=== PATIENT | female | born 1975 | race Caucasian/White ===

== ENCOUNTER 2020-03-03 05:47 | Emergency (ER) | payer BC ==
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
[2020-03-03 06:03] VITALS: BP 114/63
[2020-03-03] MEDS: HYDROcod/ACETAM 5/325 MG TABLET PO STA (06:12)
[2020-03-03] MEDS: BACITRACIN ZINC OINT 1 PACKET TOP STA (06:45)
== END 2020-03-03 07:00 | disposition home or self-care (01) ==
LOC: ED 05:47
DX: T23.261A Burn of second degree of back of right hand, initial encounter (principal); X12.XXXA Contact with other hot fluids, initial encounter
CPT/HCPCS: 16020; 99283; A9270

== ENCOUNTER 2020-06-25 06:56 | Outpatient (CLI) | payer BC ==
[2020-06-25 15:25] LABS: EOSINOPHILS # (AUTO) 0.1 10^3/uL (0.0-0.7); EOSINOPHILS % (AUTO) 4.6 %; HGB - HEMOGLOBIN 13.8 g/dL (12.0-16.0); LYMPHOCYTES # (AUTO) 1.1 10^3/uL (1.5-3.5); LYMPHOCYTES % (AUTO) 35.4 %; MEAN CORPUSCULAR HGB CONC 33.5 g/dL (32.0-36.0); MEAN CORPUSCULAR VOLUME 95.6 fL (81.0-99.0); MEAN PLATELET VOLUME 10.7 fL (7.9-10.8); MONOCYTES # (AUTO) 0.3 10^3/uL (0.0-1.0); MONOCYTES % (AUTO) 9.9 %; NEUTROPHILS # (AUTO) 1.5 10^3/uL (1.5-6.6); NEUTROPHILS % (AUTO) 49.1 %; PLT - PLATELET COUNT 193 10^3/uL (130-450); RED BLOOD COUNT 4.31 10^6/uL (4.20-5.40); RED CELL DISTRIBUTION WIDTH 12.2 % (12.0-15.0)
[2020-06-25 15:52] LABS: % IRON SATURATION 29 % (20-50); ALBUMIN 4.6 g/dL (3.2-5.5); ALBUMIN/GLOBULIN RATIO 2.2 (1.0-2.2); ALKALINE PHOSPHATASE 42 IU/L (42-121); ALT ALANINE AMINOTRANSFERASE 18 IU/L (10-60); AST ASPARTATE AMINOTRANSFERASE 18 IU/L (10-42); BILIRUBIN,TOTAL 0.9 mg/dL (0.2-1.0); BUN - BLOOD UREA NITROGEN 18 mg/dL (6-20); CALCIUM 9.2 mg/dL (8.5-10.3); CARBON DIOXIDE - CO2 25 mmol/L (21-32); CHLORIDE 106 mmol/L (101-111); CHOL/HDL RATIO 2.3 (<4.4); CHOLESTEROL 171 mg/dL; CREATININE 0.7 mg/dL (0.4-1.0); GLUCOSE 96 mg/dL (70-100); HDL CHOLESTEROL 75 mg/dL; IRON 111 ug/dL (28-170); SODIUM 137 mmol/L (135-145); TOTAL IRON BINDING CAPACITY 381 ug/dL (250-450); TOTAL PROTEIN 6.7 g/dL (6.7-8.2); TRANSFERRIN 272 mg/dL (192-382)
[2020-06-25 16:04] LABS: FERRITIN 24.4 ng/mL (11.0-306.8)
[2020-06-25 16:27] LABS: FOLLICLE STIMULATING HORMONE 4.41 mIU/mL
[2020-06-25 16:28] LABS: LUTEINIZING HORMONE 3.76 mIU/mL
[2020-06-25 20:19] LABS: HEMOGLOBIN A1c% 4.9 % (4.27-6.07)
[2020-06-26 06:05] LABS: PROGESTERONE 17.7 ng/mL
== END 2020-06-25 06:57 | disposition home or self-care (01) ==
LOC: LAB.S 06:56
PROVIDERS: ATTEND Acupuncturist
DX: F31.81 Bipolar II disorder (principal); R42 Dizziness and giddiness; R53.83 Other fatigue
CPT/HCPCS: 36415; 80053; 80061; 81599; 82672; 82728; 83001; 83002; 83036; 83525; 83540; 83721; 84144; 84403; 84466; 85025

== ENCOUNTER 2020-10-16 11:40 | Emergency (ER) | payer BC ==
[2020-10-16] MEDS ORDERED: ONDANSETRON ODT 4 MG TABLET TL STA (12:09)
--- NOTE | 2020-10-16 12:12 | ED Physician Documentation ---
History of Present Illness - Stated complaint Stated Complaint: BACK PX - Chief complaint Chief Complaint: Back Pain - History obtained from History obtained from: Patient - History of Present Illness Timing: Yesterday - Additonal information Additional information: 45-year-old female presents to the emergency department for evaluation of right low back pain. She is reportedly 18 weeks . She is attended by clinical account liaison on [facility]. 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 She reports that yesterday she was laughing hard with her family and did not think much of it but when she woke up in the morning she had some pain in the right low back. Since then she has taken 3 doses of extra strength Tylenol and has taken the edge off the pain but not fully relieved it. She also reports that she vomited this morning which made her worry. She denies lower pelvic cramping, vaginal bleeding loss of fluids. She continues to have movement. We were able to easily get heart tones with a heart rate greater than 150. Patient reports that she called her clinical account liaison (Irene Gutierrez) and was advised to come to the ER to get a prescription for something stronger than Tylenol. In the room she appears very well moves with very little difficulty. no saddle anesthesia, leg parathesias, fevers, leg weakness. A2; history of x2. She takes lamotrigine and fluoxetine for history of bipolar depression. Denies any previous history of low back pain. No falls or trauma. No fevers. Denies any change in symptoms with urination or dysuria. No hematuria. Review of Systems Constitutional: denies: Fever, Chills Eyes: reports: Reviewed and negative Ears: reports: Reviewed and negative Nose: reports: Reviewed and negative Throat: reports: Reviewed and negative Cardiac: reports: Reviewed and negative Respiratory: reports: Reviewed and negative GI: reports: Nausea, Vomiting. denies: Abdominal Pain, Constipation, Diarrhea : denies: Dysuria, Frequency, Hesitancy Skin: reports: Reviewed and negative Musculoskeletal: reports: Back pain Neurologic: reports: Reviewed and negative PD PAST MEDICAL HISTORY - Past Medical History Past Medical History: Yes Psych: Bipolar disorder, Obsessive compulsive disorder - Past Surgical History Past Surgical History: Yes General: Cholecystectomy /CASKET LINER: section - Present Medications Home Medications: Ambulatory Orders Medication Instructions Recorded Confirmed FLUoxetine [PROzac] 100 mg PO DAILY 03/03/20 10/16/20 Lamotrigine [Lamotrigine ER] 100 mg PO DAILY 03/03/20 10/16/20 Nitrofurantoin Monohyd/M-Cryst 100 mg PO BID #10 capsule 10/16/20 [Macrobid 100 mg Capsule] - Allergies Allergies/Adverse Reactions: Allergies Allergy/AdvReac Type Severity Reaction Status Date / Time No Known Drug Allergies Allergy Verified 10/16/20 11:49 - Social History Does the pt smoke?: No Smoking Status: Never smoker Does the pt drink ETOH?: No Does the pt have substance abuse?: No - Immunizations Immunizations are current?: No Immunizations: TDAP >10years/unknown PD ED PE EXPANDED - General General: Alert, No acute distress, Well developed/nourished - Neck Neck: Supple w/out meningeal sx, No tenderness. No: Adenopathy - Cardiac Cardiac: Regular Rate, Regular Rhythm, Cap refill < 2 sec. No: Murmur Present - Respiratory Respiratory: Clear to ausultation ashish. No: Distress, Labored - Abdomen Abdomen: Normal Bowel sounds, Other (Uterus is palpable at approximately 3 cm below the umbilicus.). No: Tender to palpation - Back Back: Soft tissue tenderness (Mild right lower paraspinous tenderness to palpation without rash swelling or erythema. No midline spinous process tenderness. Full range of motion of lower lumbar spine. Patient able to move easily get out of bed and walk with no assistance. Able to walk on heels and toes.). No: Vertebral tenderness - Derm Derm: Normal color, Warm and dry. No: Rash - Extremities Extremities: Normal. No: Deformity, Tenderness - GCS Eye Opening: Spontaneous Motor: Obeys Commands Verbal: Oriented Total: 15 Results - Vitals Vitals: Vital Signs - 24 hr 10/16/20 11:44 Temperature 37.2 C Heart Rate 72 Respiratory 18 Rate Blood Pressure 109/52 L O2 Saturation 99 Oxygen O2 Source Room air - Labs Labs: Laboratory Tests 10/16/20 12:17 Urine Color YELLOW Urine Clarity SL. CLOUDY Urine pH 7.5 Ur Specific [place] 1.020 Urine Protein NEGATIVE Urine Glucose (UA) NEGATIVE Urine Ketones 15 H Urine Occult Blood SMALL H Urine Nitrite NEGATIVE Urine Bilirubin NEGATIVE Urine Urobilinogen 0.2 (NORMAL) Ur Leukocyte Esterase NEGATIVE Urine RBC 6-10 H Urine WBC 0-3 Ur Squamous Epith Cells MOD Squamous H Amorphous Sediment Moderate Urine Bacteria Moderate H Ur Microscopic Review INDICATED Urine Culture Comments NOT INDICATED PD MEDICAL DECISION MAKING - ED course Complexity details: reviewed results, re-evaluated patient, considered differential, d/w patient ED course: 45 year old female who is 18 weeks comes to the ED with less than 24 hours of acute right low paraspinous back pain. has taken tylenol with some relief of pain. No red flags. no fevers. Urine shows show bacteruria with multiple squmous cells. She has no CVA or flank pain tenderness. Will tx with macrobid here in the ED she has had normal movement and we were able to easily obtain heart tones with doppler. At this time I do not feel that escalation of the analgesia is appropriate. her exam is relatively benign and reassuring. I will recomemnd tylenol 500 mg every 4-6 hours, gentle stretching exercises. Continue f/u with Ob next week as scheduled. Emergent return precautions discussed Departure - Departure Disposition: Home, Self Care Clinical Impression: Asymptomatic bacteriuria during Low back pain Qualifiers: Chronicity: acute Back pain laterality: right Sciatica presence: without sciatica Qualified Code(s): M54.5 - Low back pain Condition: Stable Record reviewed to determine appropriate education?: Yes Instructions: ED Back Care Tips Follow-Up: Jinny Gutierrez LMW [Physician No Access] - Prescriptions: Nitrofurantoin Monohyd/M-Cryst [Macrobid 100 mg Capsule] 100 mg PO BID #10 capsule Comments: Cori I hope that Your lower back is feeling better soon. I would like you to take Tylenol 500 mg every 4-6 hours. I do not expect you to be 100% pain-free. Gentle stretching cold or heat may also help. Your urine today shows a moderate amount of bacteria though you do not have the traditional signs of urinary tract infection. It is still important to treat this during . We have given you your first dose of antibiotic here in the emergency department. Please take the second dose tonight and fill the remaining prescription tomorrow. Continue follow-up with your OB as already scheduled. Return here for any fevers, difficulty or pain with urination, vaginal bleeding loss of fluids or if you stop feeling movement.
[2020-10-16 12:22] LABS: BILIRUBIN,URINE NEGATIVE (NEGATIVE); GLUCOSE, URINE (UA) NEGATIVE (NEGATIVE); KETONES,URINE (UA) 15 mg/dL (NEGATIVE); LEUKOCYTE ESTERASE, URINE NEGATIVE (NEGATIVE); NITRITE,URINE NEGATIVE (NEGATIVE); OCCULT BLOOD,URINE SMALL (NEGATIVE); PH,URINE 7.5 PH (5.0-7.5); PROTEIN,URINE NEGATIVE (NEGATIVE); UROBILINOGEN,URINE 0.2 (NORMAL) E.U./dL (NORMAL)
[2020-10-16 12:38] LABS: CLARITY,URINE SL. CLOUDY (CLEAR)
[2020-10-16 12:39] LABS: AMORPHOUS SEDIMENT,UR Moderate /LPF; BACTERIA,URINE Moderate /HPF (None Seen); SQUAMOUS EPITHELIAL CELL,UR MOD Squamous (<= Few)
[2020-10-16] MEDS ORDERED: NITROFURANTOIN MACRO 100 MG CAPSULE PO STA (12:45)
[2020-10-16 12:52] VITALS: BP 113/60
== END 2020-10-16 12:55 | disposition home or self-care (01) ==
LOC: ED 11:40
DX: O99.891 Other specified diseases and conditions complicating pregnancy (principal); M54.5 Low back pain; R82.71 Bacteriuria; Z3A.18 18 weeks gestation of pregnancy
CPT/HCPCS: 81001; 99283; 99284; A9270; Q0162; 81003; 87086

== ENCOUNTER 2020-11-16 12:11 | Outpatient (CLI) | payer BC ==
[2020-11-16 15:18] LABS: BASOPHILS % (AUTO) 0.4 %; EOSINOPHILS % (AUTO) 0.6 %; HGB - HEMOGLOBIN 11.4 g/dL (12.0-16.0); LYMPHOCYTES # (AUTO) 0.9 10^3/uL (1.5-3.5); LYMPHOCYTES % (AUTO) 16.4 %; MEAN CORPUSCULAR HEMOGLOBIN 33.4 pg (27.0-31.0); MEAN CORPUSCULAR HGB CONC 33.7 g/dL (32.0-36.0); MEAN CORPUSCULAR VOLUME 99.1 fL (81.0-99.0); MEAN PLATELET VOLUME 10.8 fL (7.9-10.8); MONOCYTES # (AUTO) 0.3 10^3/uL (0.0-1.0); MONOCYTES % (AUTO) 6.3 %; NEUTROPHILS % (AUTO) 75.9 %; PLT - PLATELET COUNT 183 10^3/uL (130-450); RED BLOOD COUNT 3.41 10^6/uL (4.20-5.40); WHITE BLOOD COUNT 5.3 x10^3/uL (4.8-10.8)
[2020-11-16 15:20] LABS: BILIRUBIN,URINE NEGATIVE (NEGATIVE); GLUCOSE, URINE (UA) NEGATIVE (NEGATIVE); KETONES,URINE (UA) NEGATIVE (NEGATIVE); LEUKOCYTE ESTERASE, URINE NEGATIVE (NEGATIVE); NITRITE,URINE NEGATIVE (NEGATIVE); OCCULT BLOOD,URINE NEGATIVE (NEGATIVE); PROTEIN,URINE TRACE mg/dL (NEGATIVE); UROBILINOGEN,URINE 1 (NORMAL) E.U./dL (NORMAL)
[2020-11-16 15:31] LABS: CLARITY,URINE CLEAR (CLEAR)
[2020-11-16 15:57] LABS: ALBUMIN 3.3 g/dL (3.2-5.5); CALCIUM 8.9 mg/dL (8.5-10.3); CREATININE 0.6 mg/dL (0.4-1.0); PHOSPHORUS 3.2 mg/dL (2.5-4.6)
== END 2020-11-16 12:12 | disposition home or self-care (01) ==
LOC: LAB.S 12:11
PROVIDERS: ATTEND Midwife
DX: O09.522 Supervision of elderly multigravida, second trimester (principal); O99.891 Other specified diseases and conditions complicating pregnancy; R30.0 Dysuria; M54.5 Low back pain
CPT/HCPCS: 36415; 80069; 81001; 81003; 85025; 87086